=== PATIENT | male | born 1975 | race American Indian/Alaskan Native ===

== ENCOUNTER 2019-01-11 23:49 | Emergency (ER) | payer MEDICAID ==
[2019-01-11 23:49] VITALS: BMI 27.8
[2019-01-12 00:01] VITALS: RESP 20
[2019-01-12] MEDS ORDERED: Sodium Chloride 0.9% 1,000 ML IV ONE (00:10)
--- NOTE | 2019-01-12 00:11 | C.PDOC ---
History Of Present Illness 43 year old male with Hx of depression presents with abdominal pain and diarrhea after he ate a hotdog tonight. Denies fever or other complaints. Time Seen by Provider: 01/11/19 23:55 Chief Complaint (Nursing): Abdominal Pain History Per: Patient History/Exam Limitations: no limitations Onset/Duration Of Symptoms: Hrs Current Symptoms Are (Timing): Still Present Quality Of Discomfort: Unable To Describe Associated Symptoms: Diarrhea. denies: Fever, Chills, Nausea, Vomiting Exacerbating Factors: None Alleviating Factors: None Recent travel outside of the [place]: No Past Medical History Reviewed: Historical Data, Nursing Documentation, Vital Signs Vital Signs: Last Vital Signs Temp 97.7 F 01/11/19 23:57 Pulse 67 01/11/19 23:57 Resp 20 01/11/19 23:57 BP 118/82 01/11/19 23:57 Pulse Ox 100 01/11/19 23:57 - Medical History PMH: Anxiety, Bipolar Disorder, Depression, Schizophrenia Denies: Diabetes, Hepatitis, HIV, HTN, Seizures, Sexually Transmitted Disease - [employer] [facility] Procedures PSYCHIA INTERV/EVAL NEC (02/14/14) Family History: States: No Known Family Hx - Social History Hx Tobacco Use: Yes Hx Alcohol Use: No (Unknown) Hx Substance Use: No (Unknown) - Immunization History Hx Tetanus Toxoid Vaccination: No Hx Influenza Vaccination: Yes Hx Pneumococcal Vaccination: No Review Of Systems Constitutional: Negative for: Fever, Chills Cardiovascular: Negative for: Chest Pain, Palpitations Respiratory: Negative for: Cough, Shortness of Breath Gastrointestinal: Positive for: Abdominal Pain, Diarrhea. Negative for: Nausea, Vomiting Neurological: Negative for: Weakness, Numbness Physical Exam - Physical Exam Appears: Non-toxic, Other (Anxious) Skin: Normal Color, Warm, Dry Head: Atraumatic, Normacephalic Eye(s): bilateral: Normal Inspection Oral Mucosa: Moist Chest: Symmetrical, No Tenderness Cardiovascular: Rhythm Regular Respiratory: Normal Breath Sounds, No Rales, No Rhonchi, No Wheezing Gastrointestinal/Abdominal: Soft, Tenderness (Mild nonfocal), No Guarding, No Rebound Back: No CVA Tenderness Neurological/Psych: Oriented x3, Normal Speech ED Course And Treatment - Laboratory Results Result Diagrams: 01/12/19 00:25 01/12/19 00:25 O2 Sat by Pulse Oximetry: 100 (Room air) Pulse Ox Interpretation: Normal - CT Scan/US CT abd/pel Other Rad Studies (CT/US): Read By Radiologist, Radiology Report Reviewed CT/US Interpretation: CT SCAN OF THE ABDOMEN AND PELVIS WITH CONTRAST. CLINICAL HISTORY: Abdominal pain. Nausea and vomiting. TECHNIQUE: Multiple axial and coronal CT images were obtained through the abdomen and pelvis after administration of intravenous contrast material. COMMENTS: Fluid-filled stomach. Fluid-filled small bowels. The liver is of uniform attenuation without mass or defect. There is no intra or extrahepatic biliary ductal dilatation. The spleen is normal. The gallbladder is within normal limits. The pancreas is of normal contour and attenuation characteristics. There is no evidence of adrenal mass. Both kidneys demonstrate prompt and equal nephrograms. The kidneys are normal in size, shape and configuration. There is no evidence of renal or ureteral mass. No renal or ureteral calculi are identified. There is no hydroureter or hydronephrosis. No evidence for appendicitis. There is no bowel wall thickening. No evidence for small or large bowel obstruction. There is no evidence of abdominal ascites or lymphadenopathy. There is no evidence of intrinsic or extrinsic bladder mass. There is no pelvic ascites or lymphadenopathy. Images of the lung bases show no evidence of pleural or parenchymal mass. There are no pleural effusions. The bony structures are free of lytic or blastic lesions. IMPRESSION: Uncomplicated gastroente ritis. Medical Decision Making Medical Decision Making: ro gastroenteritis, colitis, gastrtis - bedside us neg for cholecystitis Blood work and urinalysis ordered. Protonix and IV fluids administered. ct shows gastro. labs minimal leukocytosis pain improved. stable for dc and outpt trial antibitoics. Disposition - Disposition Referrals: [facility] [Outside] [facility] [Outside] Ricky Baker MD [Staff Provider] - Disposition: HOME/ ROUTINE Disposition Time: 04:00 Condition: STABLE Additional Instructions: please see specialist and your doctor/clinic. . return to er with worsening symptoms or concerns. Prescriptions: Ciprofloxacin [Cipro] 500 mg PO BID #20 tab metroNIDAZOLE [Flagyl] 500 mg PO TID #30 tab Instructions: Bacterial Gastroenteritis, Child (DC), Viral Gastroenteritis, Child (DC), Acute Abdomen (Belly Pain) Forms: [employer] ([place]ux[place]ish) - Clinical Impression Clinical Impression: Abdominal pain, Gastroenteritis - Scribe Statement The provider has reviewed the documentation as recorded by the Scribwanda Lopez All medical record entries made by the Reeceibwanda were at my direction and personally dictated by me. I have reviewed the chart and agree that the record accurately reflects my personal performance of the history, physical exam, medical decision making, and the department course for this patient. I have also personally directed, reviewed, and agree with the discharge instructions and disposition.
--- NOTE | 2019-01-12 00:16 | C.PDOC ---
Time Seen by Provider: 01/11/19 23:55 Chief Complaint (Nursing): Abdominal Pain Past Medical History Vital Signs: Last Vital Signs Temp 97.7 F 01/11/19 23:57 Pulse 67 01/11/19 23:57 Resp 20 01/11/19 23:57 BP 118/82 01/11/19 23:57 Pulse Ox 100 01/11/19 23:57 - Medical History PMH: Anxiety, Bipolar Disorder, Depression, Schizophrenia Denies: Diabetes, Hepatitis, HIV, HTN, Seizures, Sexually Transmitted Disease - [facility] Procedures PSYCHIA INTERV/EVAL NEC (02/14/14) - Social History Hx Tobacco Use: Yes Hx Alcohol Use: No (Unknown) Hx Substance Use: No (Unknown) - Immunization History Hx Tetanus Toxoid Vaccination: No Hx Influenza Vaccination: Yes Hx Pneumococcal Vaccination: No ED Course And Treatment O2 Sat by Pulse Oximetry: 100 Disposition - Disposition
[2019-01-12] MEDS ORDERED: Sodium Chloride 0.9% 1,000 ML ONE (00:18)
[2019-01-12 00:28] LABS: BASO % 0.2 % (0.0-2.0); EOS # 0.1 K/uL (0.0-0.7); EOS % 1.2 % (0.0-4.0); HEMOGLOBIN 15.7 g/dL (12.0-18.0); LYMPH # 1.7 K/uL (1.0-4.3); LYMPH % 15.7 % (20.0-40.0); MEAN CELL VOLUME 92.7 fL (80.0-94.0); MEAN CORPUSCULAR HGB CONC 33.4 g/dL (33.0-37.0); MEAN PLATELET VOLUME 7.8 fL (7.2-11.7); MONO # 0.7 K/uL (0.0-0.8); NEUT # 8.4 K/uL (1.8-7.0); NEUT % 76.9 % (50.0-75.0); RBC 5.06 Mil/uL (4.40-5.90); WHITE BLOOD COUNT 10.9 K/uL (4.8-10.8)
[2019-01-12 00:36] LABS: PROTHROMBIN TIME 10.7 SECONDS (9.7-12.2)
[2019-01-12 01:20] LABS: ALB/GLOB RATIO 1.6 (1.0-2.1); ALBUMIN 4.2 g/dL (3.5-5.0); ALT/SGPT 31 U/L (21-72); AST/SGOT 35 U/L (17-59); BILIRUBIN,DIRECT 0.4 mg/dL (0.0-0.4); BLOOD UREA NITROGEN 12 mg/dL (9-20); CALCIUM 8.8 mg/dl (8.6-10.4); GFR NON-AFRICAN AMERICAN > 60; LIPASE 132 U/L (23-300)
[2019-01-12] MEDS ORDERED: Iodixanol 320 MG/ML 100 ML BOTTLE IV ONE (01:37)
[2019-01-12 03:55] VITALS: BP 120/80; PULSE 80; TEMP 98
[2019-01-12 05:32] VITALS: O2SAT 100
--- NOTE | 2019-01-12 07:49 | CT ---
Date of service: 01/12/2019 PROCEDURE: CT Abdomen and Pelvis with intravenous contrast HISTORY: Abdominal pain. Vomiting. Diarrhea. COMPARISON: None. TECHNIQUE: Multiple contiguous axial images were performed through the abdomen and pelvis with the use of intravenous contrast. Subsequently, sagittal and coronal reformatted images were obtained. Radiation dose: Total exam DLP = 1279.2 mGy-cm. This CT exam was performed using one or more of the following dose reduction techniques: Automated exposure control, adjustment of the mA and/or kV according to patient size, and/or use of iterative reconstruction technique. FINDINGS: LOWER THORAX: Scattered atelectasis at the lung bases. LIVER: Prominent liver. GALLBLADDER AND BILE DUCTS: Unremarkable. PANCREAS: Unremarkable. No gross lesion or ductal dilatation. SPLEEN: Unremarkable. ADRENALS: Nodular thickening of the adrenal glands. KIDNEYS AND URETERS: Unremarkable. No hydronephrosis. No solid mass. VASCULATURE: Unremarkable. No aortic aneurysm. No aortic atherosclerotic calcification or mural plaque present. BOWEL: Distended stomach. Multiple distended enhancing loops of small bowel seen throughout the abdomen. Fecal retention in the colon. APPENDIX: Unremarkable. Normal appendix. PERITONEUM: Unremarkable. No free fluid. No free air. LYMPH NODES: Shotty para-aortic and inguinal lymph nodes. Shotty mesenteric lymph nodes. BLADDER: Unremarkable. REPRODUCTIVE: Unremarkable. BONES: Degenerative changes in the spine. OTHER FINDINGS: Calcified phleboliths in the pelvis. IMPRESSION: 1. Multiple distended enhancing loops of small bowel seen throughout the abdomen suggestive for an enteritis, possibly related to acute infectious and or inflammatory changes. Clinical correlation. 2. Nodular thickening of the adrenal glands. 3. Prominent liver. Additional findings as above. A preliminary report was generated at 2:21 a.m. on 01/12/[address] Eric Yancey from [employer].
== END 2019-01-12 03:53 | disposition home or self-care (01) ==
LOC: C.ER 23:49
DX: K52.9 Noninfective gastroenteritis and colitis, unspecified (principal); R10.9 Unspecified abdominal pain
CPT/HCPCS: 74177; 80053; 82248; 83690; 85025; 85610; 85730; 96361; 96374; 99284; C9113; J7030; Q9967